=== PATIENT | male | born 1970 | race Caucasian/White ===

== ENCOUNTER → 2023-11-08 | Outpatient (CLI) | payer OTHER, SELFPAY ==
--- NOTE | 2023-11-08 07:55 | CT_ITS ---
EXAM: CT MAXILLOFACIAL SINUSES WITHOUT INTRAVENOUS CONTRAST CLINICAL INDICATION: CHRONIC SINUSITIS TECHNIQUE: Helically acquired images were obtained of the maxillofacial sinuses without intravenous contrast. This CT exam was performed using one or more of the following dose reduction techniques: automated exposure control, adjustment of the mA and/or kV according to patient size, and/or use of iterative reconstruction technique. RADIATION DOSE: CTDIvol = 33.06 mGy, DLP = 776.00 mGy-cm COMPARISON: No relevant prior studies available. FINDINGS: MAXILLARY SINUSES: Maxillary sinus disease. Bilateral mastoid air cell disease. Ostiomeatal complexes are normally formed. SPHENOID SINUSES: Clear. FRONTAL SINUSES: See below. ETHMOID AIR CELLS: Ethmoid and frontal sinus disease. NASAL CAVITY/SEPTUM: Nasal septum is midline. Nasal turbinates are unremarkable. AUDITORY SYSTEM: Fluid in the left middle ear. BONES/JOINTS: Anterior cranial fossa is unremarkable. ORBITS: Unremarkable. DENTAL: Unremarkable as visualized. No periodontal osseous erosion. CT/Sinus/Facial Bone IMPRESSION: 1. Fluid in the left middle ear. 2. Maxillary sinus disease. Bilateral mastoid air cell disease. 3. Ethmoid and frontal sinus disease. Electronically Signed: Ankush Cheng MD at 15:00 EDT ,
== END | disposition home or self-care (01) ==
PROVIDERS: PCP Family Medicine; Referring Provider Otolaryngology; Visit Provider Otolaryngology
DX: J32.8 Other chronic sinusitis (principal)
CPT/HCPCS: 70486